=== PATIENT | female | born 1965 | race Caucasian/White ===

== ENCOUNTER 2016-08-16 21:26 | Emergency (ER) | payer BC ==
[~2016-08-16] VITALS: Ht 162.6 cm; Wt 91.0 kg
[2016-08-16 21:28] VITALS: TEMP 36.7; Ht 162.6 cm; Wt 91.0 kg
[2016-08-16] MEDS ORDERED: MELO15TA4 PO (22:13)
[2016-08-16] MEDS ORDERED: NAPR1TAB48 PO (22:13)
--- NOTE | 2016-08-16 22:18 | DIAGNOSTIC IMAGING REPORT ---
RIGHT KNEE 1 OR 2 VIEWS ROUTINE CLINICAL HISTORY: knee pain Right pain COMPARISON: None. DISCUSSION: All major joint compartments are well preserved. Minimal osteophytic reaction superior patella. Possible small loose body intercondylar notch. There is no evidence for soft tissue swelling. IMPRESSION: Mild degenerative change. Possible small loose body. No acute bony abnormality Electronically signed by: Rodriguez Childs M.D. 08/16/2016 10:17 PM Dictated Date/Time: 08/16/2016 10:16 PM
--- NOTE | 2016-08-16 22:29 | EMERGENCY ROOM VISIT NOTE ---
ED Visit Note First contact with patient: 21:34 CHIEF COMPLAINT: Right knee pain HISTORY OF PRESENT ILLNESS: This 50-year-old female presents the ER with chief complaint of right knee pain. The patient states that she has been having problems with her right knee and has been getting steroid injections into the right knee. Her last injection was last Monday. Usually within the first 24 hours she is feeling a lot better. She was in more pain on since she called the office on Monday and they started her on Mobic The patient states that today she was going upstairs and felt a "pop" in her right knee. She then was unable to bear weight on her right knee since that time. The patient does admit that she's had some locking of the right knee in the past. She had an MRI done of the right knee about a year ago which did not reveal any meniscal tear or ligament damage. REVIEW OF SYSTEMS: 6 system review was performed and was negative unless stated otherwise in history of present illness. PMH: The patient is healthy; there is no significant medical or surgical history. SOCIAL HISTORY: Patient lives at home. PHYSICAL EXAM: Vital Signs: Were reviewed Reviewed Nurse's notes. GENERAL: 42- year-old white female appears in no acute distress. MENTAL STATUS: Alert, oriented, and cooperative. RIGHT KNEE: No gross bony deformity noted. No erythema or edema noted. The patient has limited range of motion secondary to pain. She cannot flex past 15. There is no ligamentous instability. The skin is normal and intact. EMERGENCY DEPARTMENT COURSE: The patient was evaluated. The patient was offered pain medication but declined. X-ray of the right knee was ordered and interpreted by the radiologist and myself. DIAGNOSTICS:RIGHT KNEE 1 OR 2 VIEWS ROUTINE CLINICAL HISTORY: knee pain Right pain COMPARISON: None. DISCUSSION: All major joint compartments are well preserved. Minimal osteophytic reaction superior patella. Possible small loose body intercondylar notch. There is no evidence for soft tissue swelling. IMPRESSION: Mild degenerative change. Possible small loose body. No acute bony abnormality Electronically signed by: Rodriguez Childs M.D. 08/16/2016 10:17 PM The patient was informed of the findings. The patient was placed in Remy wrap. The patient has crutches at home to aid in ambulation. The patient was given a Zaelab home pack. DIAGNOSIS: Right knee pain DISCHARGE INSTRUCTIONS: Wear Remy wrap and keep leg elevated as much as possible over the next 24 hours. Ice intermittently over the next 24 hours. Use crutches for ambulation. Take [place] as needed at bedtime to aid in pain control. Do not drive while taking the [place]. Continue your Mobic. Call tomorrow for follow-up appointment. Current/Historical Medications Scheduled Meloxicam (Meloxicam), 15 MG PO DAILY Scheduled PRN Naproxen (Naprosyn), 250 MG PO BID PRN for Pain Allergies Coded Allergies: No Known Allergies (Unverified , 08/16/16) Vital Signs Date Time Temp Pulse Resp B/P (MAP) Pulse Ox O2 Delivery O2 Flow Rate FiO2 08/16/16 21:28 36.7 90 18 158/100 98 Room Air Departure Information Referrals No Doctor, Assigned (PCP) Patient Instructions [facility]
[2016-08-16] MEDS ORDERED: NORCO 5/325MG HOME PACK PO ONE (22:30)
[2016-08-16 22:43] VITALS: BP 140/80; PULSE 77; O2SAT 98
== END 2016-08-16 22:45 | disposition home or self-care (01) ==
LOC: C.EDB 21:27 → C.EDD 22:45
DX: M25.561 Pain in right knee (principal)

== ENCOUNTER 2016-09-11 00:52 | Emergency (ER) | payer BC ==
[~2016-09-11] VITALS: Ht 162.6 cm; Wt 96.0 kg
[~2016-09-11 00:52] MED LIST: MELO15TA4 PO; NAPR250T2 PO
[2016-09-11 01:00] VITALS: TEMP 36.6; Ht 162.6 cm; Wt 96.0 kg
[2016-09-11] MEDS ORDERED: NAPR1TAB9 PO (02:15)
[2016-09-11] MEDS ORDERED: TRAM-10 PO (02:17)
[2016-09-11 02:51] VITALS: BP 138/76; PULSE 78; O2SAT 98
--- NOTE | 2016-09-11 06:15 | EMERGENCY ROOM VISIT NOTE ---
History First contact with patient: 01:05 Chief Complaint: KNEEPAIN Stated Complaint: PAIN IN RIGHT KNEE DOWN LEG INTO FOOT History of Present Illness The patient is a 50 year old female who presents to the Emergency Room with complaints of worsening pain and swelling of her right knee down her calf, and into her right foot. The patient has a history of recent meniscus surgery and is being followed by orthopedics. Her surgery was about 2 weeks ago and she states that her pain is an 8/10 that worsens with certain movement. She has been taking tramadol and mobic at home without improvement of her symptoms. The patient went to her orthopedic clinic 4 days ago, and evidently she was instructed to come to the ER if her symptoms worsened. The patient has not had fever or chills. No chest pain, chest tightness, or shortness of breath. No recent travel history. She rates her discomfort a 4/10 at rest and 8/10 with standing. Review of Systems More than 10 systems were reviewed and otherwise negative with the exception of history of present illness. Past Medical/Surgical History No pertinent chronic medical disease Family History No pertinent family history Social History Smoking Status: Never Smoker Marital Status: Occupation Status: employed Current/Historical Medications Scheduled PRN Naproxen (Aleve), 440 MG PO BID PRN for Pain Tramadol (Ultram), 50 MG PO BID PRN for Pain Physical Exam Vital Signs Date Time Temp Pulse Resp B/P (MAP) Pulse Ox O2 Delivery O2 Flow Rate FiO2 09/11/16 02:51 78 20 138/76 98 09/11/16 01:00 36.6 79 16 146/88 96 Room Air Pain Rating (0-10): 5.0 Physical Exam VITALS: Vitals are noted on the nurse's note and reviewed by myself. Vital signs stable. GENERAL: Well-developed, well-nourished, white female, who is in no acute distress and resting comfortably. Patient is cooperative with the examination. HEART: Regular rate and rhythm without murmurs gallops or rubs. LUNGS: Clear to auscultation bilaterally without wheezes, rales or rhonchi. No retractions or accessory muscle use. MUSCULOSKELETAL: Right knee is with very mild edema when compared to the left knee. The right knee has a well-healed surgical incision scars. There is no significant erythema, ecchymosis, or palpable cord. There is mild tenderness throughout the posterior popliteal fossa into the superior aspect of the gastroc. Neurovascular status is intact distally. NEURO: Patient was alert and oriented to person place and time. CN II through XII grossly intact. Medical Decision & Procedures ER Provider Diagnostic Interpretation: Preliminary Findings Only See Final Report For Complete Findings US VENOUS RIGHT LOWER EXTREMITY: No evidence of deep venous thrombosis in the right lower extremity. Probable slow flow in the right popliteal vein. ED Course Physical exam and history were performed. Nursing notes, EMR, and Medication List were personally reviewed. Patient appears to have pain of her right lower extremity after knee surgery 2 weeks ago. The patient does not appear toxic on examination. She does not have chest pain or shortness of breath. Ultrasound was performed and does not show evidence of DVT. I suspect the patient's discomfort is likely part of the healing process from her surgery. She is undergoing physical therapy several days per week, and this likely is exacerbating some of her discomfort. The patient was asked to follow-up with her surgeon for further care and management. She was otherwise invited back to the ER with any new, worsening, or concerning symptoms. The chart was completed utilizing [employer] Speech Voice Recognition Software. Grammatical errors, random word insertions, pronoun errors, and incomplete sentences are an occasional consequence of this system due to software limitations, ambient noise, and hardware issues. Any formal questions or concerns about the content, text, or information contained within the body of this dictation should be directly addressed to the provider for clarification. . Medical Decision Differential diagnosis: Etiologies such as DVT, musculoskeletal, infection, joint effusion, trauma, lymphedema, idiopathic, CHF, as well as others were entertained.. Impression Primary Impression: Pain in right lower leg Departure Information Dispostion Home / Self-Care Condition GOOD Forms HOME CARE DOCUMENTATION FORM, IMPORTANT VISIT INFORMATION Patient Instructions [facility] Additional Instructions You were seen and evaluated today on an emergency basis only. This is not a substitute for, or an effort to provide, complete comprehensive medical care. It is not possible to recognize and treat all injuries or illnesses in a single emergency department visit. For this reason it is recommended that you followup with your surgeon for ongoing care and evaluation. Continue your at-home medications as prescribed. You are welcome to return to the emergency department anytime with new, worsening, or concerning symptoms.
--- NOTE | 2016-09-11 07:25 | DIAGNOSTIC IMAGING REPORT ---
ULTRASOUND RIGHT VENOUS DOPP LOWER EXT UNILAT CLINICAL HISTORY: Right lower extremity pain. COMPARISON STUDY: No previous studies for comparison. FINDINGS: Real-time and color flow Doppler imaging were performed. Flow was seen within the femoral, popliteal and calf veins with no intraluminal thrombus demonstrated. The saphenous vein is patent. IMPRESSION: No evidence of right lower extremity DVT. Electronically signed by: Bandar Bond M.D. 09/11/2016 7:23 AM Dictated Date/Time: 09/11/2016 7:23 AM
== END 2016-09-11 02:52 | disposition home or self-care (01) ==
LOC: C.EDB 00:52 → C.EDA 02:52
DX: M25.561 Pain in right knee (principal); Z98.890 Other specified postprocedural states

== ENCOUNTER → 2016-11-25 | Outpatient (CLI) | payer BC ==
[~2016-11-25] MED LIST changes: -MELO15TA4 PO; +NAPR1TAB9 PO; -NAPR250T2 PO; +TRAM-10 PO
== END | disposition home or self-care (01) ==
LOC: C.RDSM 13:18
PROVIDERS: ATTEND Orthopaedic Surgery
DX: M25.561 Pain in right knee (principal)

== ENCOUNTER → 2017-05-03 | Outpatient (CLI) | payer BC | END | disposition home or self-care (01) | LOC: C.RDSM 11:16 | PROVIDERS: ATTEND Orthopaedic Surgery | DX: M25.561 Pain in right knee (principal) ==